=== PATIENT | male | born 1970 | race Caucasian/White ===

== ENCOUNTER 2016-06-22 15:49 | Emergency (ER) | payer MEDICARE, OTHER ==
[~2016-06-22 15:49] MED LIST: ABILIFY; ALBUTEROL17 GM INH; AMBIEN; AMBIEN PO; AMOXICILLIN; ATARAX PO; AURALGAN; AZITHROMYCIN250 MG PO; BACTRIM DS TABL1 TA1 PO; BACTRIM DS TABL1 TA2 PO; BUSPAR15 MG PO; CAMBIA50 MG; CAMBIA50 MG PO; CELEXA PO; CELEXA20 MG PO; CITALOPRAM HBR40 MG PO; EMBREL; ENBREL25 MG/0.5 SQ; ENBREL25 MG/KIT SQ; ENBREL25 MG/KIT SUBQ; ENBREL50 MG/ML; ENBREL50 MG/ML SUBQ; ERYTHROMYC3.5 GM OPT OD; ESGIC CAPSULE1 CAP PO; FELDENE20 MG; FELDENE20 MG PO; FLEXERIL PO; FLEXERIL10 MG PO; GABAPENTIN600 MG PO; HYDROCODON-ACE1 EAC7 PO; HYDROCODONE-APA1 T30; IBUPROFEN800 MG PO; LEXAPRO; LEXAPRO PO; LORTAB 5/500 TA1 TA2 PO; LOVENOX40 MG/0.4 INJ; MELOXICAM15 MG PO; MOBIC PO; MOBIC15 MG PO; NEURONTIN; NEURONTIN PO; NEURONTIN600 MG; NEURONTIN600 MG PO; NO MEDICATIONS; NORTRIPTYLINE H50 MG; OMEPRAZOLE40 M1; OMEPRAZOLE40 M1 PO; PAMELOR10 M1 PO; PAMELOR50 M1 PO; PAMELOR50 MG PO; PARAFON FORTE500 MG PO; PERCOCET7.5 PO; PREDNISONE PO; PREVACID; PREVACID PO; PRILOSEC20 MG PO; PRILOSEC40 MG PO; PROAIR HFA8.5 GM; PROAIR HFA8.5 GM IH; PROTONIX PO; SONATA PO; SULFASALAZINE500 M1; SULFASALAZINE500 M1 PO; TUSSIONEX PENN473 ML PO; TYLENOL #3 PO; TYLOX 5/500 CAP1 CAP PO; VIBRAMYCIN100 M1 PO; VICODIN 5/1 TAB 5/50 PO; VISTARIL PO; VOLTAREN50 MG PO; VOLTAREN75 MG PO; ZANAFLEX; ZANAFLEX PO; ZANAFLEX2 M1; ZANAFLEX4 M1 PO; [UNRECOGNIZED DRUG - OTHER] INJ
== END 2016-06-22 16:01 | disposition home or self-care (01) ==
LOC: SED 15:49
DX: S51.811A Laceration without foreign body of right forearm, initial encounter (principal); M06.9 Rheumatoid arthritis, unspecified; F17.210 Nicotine dependence, cigarettes, uncomplicated; X58.XXXA Exposure to other specified factors, initial encounter; Y92.009 Unspecified place in unspecified non-institutional (private) residence as the place of occurrence of the external cause
CPT/HCPCS: 12001; 99283

== ENCOUNTER 2016-09-09 23:09 | Emergency (ER) | payer OTHER ==
[~2016-09-09] VITALS: Ht 175.3 cm; Wt 75.7 kg
== END 2016-09-09 23:58 | disposition home or self-care (01) ==
LOC: SED 23:09
DX: L25.5 Unspecified contact dermatitis due to plants, except food (principal); K21.9 Gastro-esophageal reflux disease without esophagitis; F41.9 Anxiety disorder, unspecified; G43.909 Migraine, unspecified, not intractable, without status migrainosus; M06.9 Rheumatoid arthritis, unspecified; M45.9 Ankylosing spondylitis of unspecified sites in spine; F17.200 Nicotine dependence, unspecified, uncomplicated; Z79.899 Other long term (current) drug therapy; Z88.7 Allergy status to serum and vaccine; Z91.012 Allergy to eggs; Z91.048 Other nonmedicinal substance allergy status
CPT/HCPCS: 99282

== ENCOUNTER → 2016-10-31 | Outpatient (CLI) | payer OTHER ==
--- NOTE | ~2016-10-31 | MR32 ---
[facility] A Service of [facility] & [facility] RADIOLOGY TEXT RESULTS PATIENT: JOSSE RAND LOCATION: [facility] : 74 UNIT #: [id number] AGE: [address]: DEANGELO AHUMADA SEX: M ORDER DR: [id number] [address] [address] [id number] O MR#: [id number] Acc #: [id number] NAME: JOSSE RAND : 1970 SEX: M STUDY DATE/TIME: 10/31/2016 14:03 UNIT: [facility] ROOM: STUDY DESCRIPTION: MR Cervical Wo Contrast Attending Physician: Deangelo Ahumada Referring Physician: Deangelo Ahumada Ordering Physician: Physician Non-Staff Primary Care Physician: Mac Villa M.D. MRI CENTER REPORT This report is preliminary unless electronic signature is present. EXAM MRI of the cervical spine without contrast dated 10/31/2016. COMPARISON None. HISTORY Neck pain for approximately 6 years that has progressively got worse in the last year. Pain radiates down the left arm. FINDINGS Multisequence multiplanar imaging of the cervical spine was obtained without contrast. Vertebral body heights and alignment are preserved. Degenerative disc signal loss is noted at multiple levels. Cord demonstrates normal course, caliber. There appears to be increased T2 signal in the C4-5 cord at discordant locations, in the axial T2 gradient sequence and axial T2 restore sequence. It is not correlated in the sagittal images. It could be an artifact. Confirm clinically. There is no change in cord caliber or course. Pre and paravertebral soft tissues do not demonstrate any significant abnormality. Motion artifact is noted in multiple sequences despite 3 attempts in sagittal T1, 2 attempts in sagittal T2 sequences. C2-3: Mild disc bulge with small central protrusion. No canal stenosis or neural foraminal narrowing. C3-4: Mild disc bulge with mild left facet hypertrophic change. No canal stenosis or neural foraminal narrowing. C4-5, C5-6: Mild disc bulge without canal stenosis or neural foraminal narrowing. C6-7, C7-T1: Mild degenerative disc disease but otherwise unremarkable. IMPRESSION 1. Motion artifact limits evaluation. [facility] A Service of [facility] & [facility] RADIOLOGY TEXT RESULTS PATIENT: JOSSE RAND LOCATION: [facility] : 74 UNIT #: [id number] AGE: [address]: DEANGELO AHUMADA SEX: M ORDER DR: 2. There appears to be increased T2 signal in the C4-5 cord at discordant locations, in the axial T2 gradient sequence and axial T2 restore sequence. It is not correlated in the sagittal images. It could be an artifact. Confirm clinically. There is no change in cord caliber or course. Dictated by... Teresita Deleon M.D. THIS IS AN ELECTRONICALLY VERIFIED REPORT Teresita Deleon M.D. at 11/04/2016 2:49 PM CPR/gz TD: 11/03/2016 15:44 JOB #: [id number] MRI CENTER REPORT Page 1 of 1
== END | disposition home or self-care (01) ==
LOC: SMRI 13:37
DX: M50.30 Other cervical disc degeneration, unspecified cervical region (principal); R93.7 Abnormal findings on diagnostic imaging of other parts of musculoskeletal system
CPT/HCPCS: 72141